=== PATIENT | female | born 1975 | race Caucasian/White ===

== ENCOUNTER → 2021-04-12 | Outpatient (CLI) | payer OTHER | LOC: EXRD 15:24 | DX: M54.31 Sciatica, right side (principal); M54.32 Sciatica, left side; M54.5 Low back pain; M62.838 Other muscle spasm | CPT/HCPCS: 72100 ==

== ENCOUNTER → 2022-06-20 | Outpatient (CLI) | payer BC | LOC: EXRD 10:26 | DX: M54.50 Low back pain, unspecified (principal) | CPT/HCPCS: 72100 ==